=== PATIENT | female | born 1960 | race Caucasian/White ===

== ENCOUNTER 2018-11-19 09:38 | Day surgery (SDC) | payer BC ==
[~2018-11-19 09:38] MED LIST: CLINDAMYCIN 600MG/50ML PREMIX 600 MG/50 ML BAG IVPB ONE; FAMOTIDINE 20MG TABLET PO ONE; MECLIZINE 25 MG TABLET PO ONE; METOCLOPRAMIDE 10 MG TABLET PO ONE; RINGERS SOLUTION,LACTATED 1,000 ML IV ONE
[2018-11-19] MEDS ORDERED: MIDAZOLAM HCL 2MG/2ML VIAL IV ONE (09:39)
[2018-11-19] MEDS ORDERED: ROPIVACAINE HCL (NAROPIN) /PF 5MG/ML 20ML VIAL IV ONE (09:39)
[2018-11-19] MEDS ORDERED: DEXAMETHASONE 4 MG/ML 1ML VIAL IVP ONE (09:39)
[2018-11-19] MEDS ORDERED: PROPOFOL 10 MG/ML VIAL IV ONE (09:39)
[2018-11-19] MEDS ORDERED: LIDOCAINE 2% MDV (20MG/ML) 20ML VIAL IV ONE (09:39)
[2018-11-19] MEDS ORDERED: RINGERS SOLUTION,LACTATED 1,000 ML IV ONE ×2 (10:42→12:25)
[2018-11-19] MEDS ORDERED: ZOLPIDEM TARTRATE 5 MG TABLET PO PRN (15:00)
[2018-11-19] MEDS ORDERED: AL HYDROX/MAG HYDROX 30ML UD PO PRN (15:00)
[2018-11-19] MEDS ORDERED: MAGNESIUM HYDROXIDE 30 ML UDC PO PRN (15:00)
[2018-11-19] MEDS ORDERED: ACETAMINOPHEN 325 MG TAB PO PRN (15:00)
[2018-11-19] MEDS ORDERED: SODIUM CHLORIDE 0.9% IVPB PRN (15:00)
[2018-11-19] MEDS ORDERED: SENNOSIDES/DOCUSATE SODIUM UD CAPSULE PO PRN (15:00)
[2018-11-19] MEDS ORDERED: ONDANSETRON HCL IV 4 MG/2 ML VIAL IVP PRN (15:00)
[2018-11-19] MEDS ORDERED: DIPHENHYDRAMINE HCL 25 MG CAPSULE PO PRN (15:00)
[2018-11-19] MEDS ORDERED: NALOXONE 0.4 MG/1 ML VIAL IVP PRN (15:00)
[2018-11-19] MEDS ORDERED: PROMETHAZINE HCL IVPB PRN (15:00)
[2018-11-19] MEDS ORDERED: TRAMADOL HCL 50 MG TABLET PO PRN (15:00)
[2018-11-19] MEDS ORDERED: OXYCODONE HCL/APAP 5MG/325MG TABLET PO PRN ×2 (15:00)
[2018-11-19] MEDS ORDERED: HYDROCODONE/APAP 5/325MG TABLET PO PRN (15:00)
[2018-11-19] MEDS: HYDROMORPHONE HCL 2 MG/ML VIAL IV PRN ×2 (15:56→20:47)
[2018-11-19] MEDS ORDERED: TRANEXAMIC ACID 1,000 MG in 0.9 % SODIUM CHLORIDE 100ML 100 ML IVPB ONE (16:00)
[2018-11-19] MEDS: HYDROCODONE/APAP 5/325MG TABLET PO PRN (16:14)
[2018-11-19] MEDS ORDERED: RINGERS SOLUTION,LACTATED 1,000 ML IV PRN (17:50)
[2018-11-19] MEDS: TRAMADOL HCL 50 MG TABLET PO PRN (19:43)
[2018-11-19] MEDS: CLINDAMYCIN 600MG/50ML PREMIX 600 MG/50 ML BAG IVPB SCH (20:27)
[2018-11-19] MEDS: ASPIRIN 325 MG TAB ENTERIC-COATED PO SCH (21:35)
[2018-11-19] MEDS: RINGERS SOLUTION,LACTATED 1,000 ML IV SCH (21:36)
[2018-11-19] MEDS ORDERED: PATIENT OWN MED: CITALOPRAM 20 MG PO SCH (22:00)
[2018-11-20] MEDS: HYDROMORPHONE HCL 2 MG/ML VIAL IV PRN ×2 (00:53→03:48)
[2018-11-20] MEDS: CLINDAMYCIN 600MG/50ML PREMIX 600 MG/50 ML BAG IVPB SCH ×2 (03:51→11:50)
[2018-11-20] MEDS: HYDROCODONE/APAP 5/325MG TABLET PO PRN ×2 (06:19→11:49)
--- NOTE | 2018-11-20 08:50 | Operative Note ---
DATE OF SURGERY: 11/19/2018 SURGEON: Elvin Payton DO PREOPERATIVE DIAGNOSIS: Osteoarthritis of the left knee. POSTOPERATIVE DIAGNOSIS: Osteoarthritis of the left knee. OPERATION: Left total knee arthroplasty. DESCRIPTION OF PROCEDURE: This 58-year-old female was taken to the operating room and placed in the supine position on the operating room table. Spinal anesthesia was induced by the department of anesthesia. The left lower extremity was elevated. It was prepped with Hibiclens and draped in the usual sterile fashion. It was exsanguinated and the tourniquet inflated to 300 mmHg. An anterior longitudinal midline incision was made down through the skin and subcutaneous tissue. Parapatellar arthrotomy incision was performed. The distal femoral drill was used to allow the intramedullary alignment gi, and a 9 mm cut was made in the distal femur at 5 degrees of valgus. The cuts were made, and a sizing jig demonstrated a size 4 to be the appropriate size in the anterior- posterior dimension but much too wide in medial-lateral dimension. Therefore, we downsized to a 3 but moved the cutting block 2 mm anteriorly to avoid notching the femur. Subsequently, the 4-in-1 cutting block was pinned in 3 degrees of external rotation. The appropriate cuts were made. Wafers of bone were removed. We then directed our attention to the proximal tibia, and an extramedullary alignment guide was used to cut the proximal tibia referencing a 10 mm cut off the lateral tibial plateau. The tibia was then sized to a size 1, and this was seen to be the appropriate size. It was then punched. Remnants of the menisci and osteophytes were removed from the posterior aspect of the joint. Trial components were inserted, and an 11 mm bearing was seen to be the appropriate size giving us excellent stability throughout range of motion. The patella was then cut and restored to anatomic height with a 29 mm patella. The knee was seen to be stable. We tried to put a 13 bearing in but it was too tight and we were not able to do so but the 11 gave us good stability throughout the range of motion. All trial components were then removed and the wound copiously irrigated with pulse lavage lactated Ringer's solution. All bony surfaces were dried. All components were cemented into place and excess cement removed after the insertion of each component. Once the cement had hardened, the knee was again taken through range of motion with excellent stability being identified. Subsequently, it was again irrigated and suctioned. A drain placed through a separate stab incision. The arthrotomy incision was closed with a #2 Vicryl. The subcutaneous tissue was closed with 0 Vicryl and the skin was stapled. Sterile dressings with a polar pack were applied. She was then transferred to the recovery room in satisfactory condition. GROSS PATHOLOGY: There was severe osteoarthritis in the medial compartment and patellofemoral joint of the left knee. Final components inserted were a [employer] size 3 cruciate retaining femur, a size 1 tibia, an 11 mm deep dish tibial bearing, and a 29 mm patella was used. CC: DO ЕЛЕНА Peck
[2018-11-20] MEDS ORDERED: LOSARTAN PO SCH (10:00)
[2018-11-20] MEDS ORDERED: HCTZ PO SCH (10:00)
[2018-11-20] MEDS ORDERED: METOPROLOL SUCCINATE 50 MG PO SCH (10:00)
[2018-11-20] MEDS: TRAMADOL HCL 50 MG TABLET PO PRN (10:08)
[2018-11-20] MEDS: ASPIRIN 325 MG TAB ENTERIC-COATED PO SCH (10:08)
[2018-11-20] MEDS: RINGERS SOLUTION,LACTATED 1,000 ML IV SCH (10:10)
--- NOTE | 2018-11-20 11:26 | Rehab Evaluation ---
Patient Information - Patient Information Diagnosis: L knee OA Ordered Treatment: PT Evaluate and Treat Status: Initial Evaluation Surgery: Yes (L TKA) Date of Surgery: 11/19/18 Past Medical/Surgical Hx: PAST MEDICAL/SURGICAL HISTORY Surgery to Affected Area? Yes: 5 yrs ago repair of meniscus Recent Surgery? Past Surgical History 5 years ago repaired meniscus due to a tear Right knee torn meniscus repair 4 years ago PMH - Respiratory Hx Respiratory Disorders No PMH - Cardiovascular Hx Cardiovascular Disorders Yes Hx Hypertension Yes Exercise Tolerance Good Hx of Migraines Yes PMH - Neuro Hx Neurological Disorders Yes PMH - GI Hx Gastrointestinal Disorders No PMH - Hx Genitourinary Disorders No Hx Age of Menopause 45 PMH - Endocrine Hx Endocrine Disorders No PMH - Musculoskeletal Hx Musculoskeletal Disorders Yes Hx Arthritis Yes PMH - Psych Hx Psychiatric Problems Yes Hx Depression Yes PMH - Hematology/Oncology Hx Hematology/Oncology No Disorders Premorbid Status: Detail (The patient was independent with all mobility prior to surgery.) Social History: Detail (The criss lives with spouse in a one story house with 2 steps and no handrails. The bathroom is equipped with : tub/shower combination, standard height toilet. No grab bars are present in the bathroom. The patient has front wheeled walker and single point cane.) Precautions: [place], Fall, Other (WBAT on the L LE.) - Time With Patient Total Time Spent With Patient (Min): 30 Treatment Procedures: Detail (Initial Evaluation Low complexity.) Subjective Information - Subjective Information Per Patient (The patient has complaints of L knee pain level 2 at the highest using 0-10 pain scale.) Objective Data - Mental Status Patient Orientation: Oriented x3 - Visual Perception Appears within normal limits for therapeutic activities - ROM Not within normal limits (The patient's L knee AROM is limited as to be expected s/p surgery. All other LE AROM is WNL.) - Strength/Tone Not within normal limits (The patient's L LE strength was not tested s/p surgery however was functional except for quad weakness ( patient needed use of strap lifting L LE in and out of bed and had difficulty isolated her quad during a quad set.) The patient's R LE strength was functional.) - Bed Mobility Independent (The patient was independent with supine to and from sit with use of strap or R LE to lift LE. The patient was able to scoot up in bed without use of trapeze independently.) - Transfers Independent (Independent with supine to and from sit transfer.) - Balance Balance Sitting: Good Balance Standing: Good - Sensation Intact - Gait Detail (The patient ambulated with front wheeled walker a distance of 75 feet x 1 WBAT on the L LE independently. The patient ambulated on 3 steps with use one railing, ambulating sideways with supervision for safety.) Therapy Assessment - Therapy Assessment Detail (The patient has met all inpatient PT goals and is discharged from inpatient PT. The patient is to continue with outpatient PT.) Problem List - Problem List Physical Therapy Problem List: Detail (1) Decreased L knee AROM as to be expected following surgery. 2) Decreased L LE strength as to be expected following surgery.) Goals - Goals Physical Therapy Goals: The patient has met all inpatient PT goals and is discharged from inpatient PT. Prognosis - Prognosis Good Plan - Plan Physical Therapy Plan: The patient is discharged from inpatient PT and is to continue with outpatient PT.
--- NOTE | 2018-11-20 12:31 | Discharge Summary ---
DATE OF ADMISSION: 11/19/2018 DATE OF DISCHARGE: 11/20/2018 ADMITTING DIAGNOSIS: Osteoarthritis of left knee. DISCHARGE DIAGNOSIS: Osteoarthritis of left knee. OPERATIVE PROCEDURE: Elective left total knee arthroplasty. HOSPITAL COURSE: This 58-year-old female was admitted to the hospital for elective total knee arthroplasty and tolerated the operative procedure well and progressed satisfactorily with physical therapy and cleared physical therapy and was ready for discharge. She did not show any evidence of complication to her surgery with no evidence of DVT. The pain was controlled with oral pain medication. She will be discharged today and her discharge instructions were to take aspirin 325 mg daily for 2 weeks. She will take [place] 5/325. She was given a prescription for 40 to take 1 every 6 hours as necessary for pain. She was also given a prescription for Ultram 50 mg, #60, 1-2 every 6 hours as necessary for pain to alternate with the [place]. She was set up for outpatient physical therapy. Routine wound care instructions were given. She will follow up in the clinic in 2 weeks. Should she have any problems prior to being seen, she was instructed to call my office. ЕЛЕНА
--- NOTE | 2018-11-20 12:32 | Rehab Evaluation ---
Patient Information - Patient Information Diagnosis: L knee OA Ordered Treatment: OT Evaluate and Treat Status: Initial Evaluation Surgery: Yes (L TKA) Date of Surgery: 11/19/18 Past Medical/Surgical Hx: PAST MEDICAL/SURGICAL HISTORY Surgery to Affected Area? Yes: 5 yrs ago repair of meniscus Recent Surgery? Past Surgical History 5 years ago repaired meniscus due to a tear Right knee torn meniscus repair 4 years ago PMH - Respiratory Hx Respiratory Disorders No PMH - Cardiovascular Hx Cardiovascular Disorders Yes Hx Hypertension Yes Exercise Tolerance Good Hx of Migraines Yes PMH - Neuro Hx Neurological Disorders Yes PMH - GI Hx Gastrointestinal Disorders No PMH - Hx Genitourinary Disorders No Hx Age of Menopause 45 PMH - Endocrine Hx Endocrine Disorders No PMH - Musculoskeletal Hx Musculoskeletal Disorders Yes Hx Arthritis Yes PMH - Psych Hx Psychiatric Problems Yes Hx Depression Yes PMH - Hematology/Oncology Hx Hematology/Oncology No Disorders Premorbid Status: Detail (The patient was independent with all ADLs and functional mobility prior to surgery.) Social History: Detail (The paient lives with spouse in a one story house with 2 steps and no handrails. The bathroom is equipped with a tub/shower combination, a grab bar in the toilet, and a standard height toilet. he patient has front wheeled walker and single point cane.) Precautions: [place], Fall, Other (WBAT on the L LE.) - Time With Patient Total Time Spent With Patient (Min): 22 (1 eval, 1 ADL) Treatment Procedures: Detail (OT eval: low complexity) Subjective Information - Subjective Information Per Patient (Ok to see per SELIN Mendoza. Pt agreeable to OT eval and Tx.) Objective Data - Pain Pain Present: Yes (08/04 - SELIN Patterson giving pain meds at bedside) - Mental Status Patient Orientation: Oriented x3 - Visual Perception Appears within normal limits for therapeutic activities - ROM Within normal limits (B UEs) - Strength/Tone Within normal limits (B UEs) - Coordination Appears within normal limits for therapeutic activities - Bed Mobility Needs Assist (light assist to elevate L LE into bed - Pt reports spouse will assist as needed at DC) - Transfers Independent (Sit to stand from low EOB to FWW with MOD I and good safety awareness.) - Balance Balance Sitting: Good Balance Standing: Fair (Fair + with FWW during standing pant mgmt) - Sensation Intact - Gait Detail (Functional mobility within bedroom with FWW and good safety awareness.) - ADL's/IADL's Detail (OT educates Pt on LB dressing using modified technique, sock aide, and government contracts manager. Pt's ability to reach to feet for socks and threading pants limited by pain, but demos MOD I post education with LB dressing using AE - reports she has a government contracts manager at home, spouse will assist with socks, and demos ability to use sock aide if she wants one later. OT educates Pt on safety with car and tub/shower TFs and recommends use of shower chair initially for balance safety s/p TKA.) Therapy Assessment - Therapy Assessment Detail (Pt demos good safety and MOD I with ADLs and functional mobility along with verbalizing safety with home tasks. Pt will have retired spouse at home who is able to assist as needed.) Patient Education - Patient Education Teaching Topic: Equipment Use Response: Return Demonstration, Verbalize Understanding Teaching Method: Discussion, Demonstration Teaching Recipient: Patient Barriers To Learning: None Problem List - Problem List Physical Therapy Problem List: Detail (1) Decreased L knee AROM as to be expected following surgery. 2) Decreased L LE strength as to be expected following surgery.) Occupational Therapy Problem List: Detail (No further IP OT needs identified.) Goals - Goals Physical Therapy Goals: The patient has met all inpatient PT goals and is discharged from inpatient PT. Occupational Therapy Goals: No further IP OT needs/goal identified. Prognosis - Prognosis Good Plan - Plan Physical Therapy Plan: The patient is discharged from inpatient PT and is to continue with outpatient PT. Occupational Therapy Plan: No further IP OT needs identified. Pt appears safe for home DC with spouse assist as needed. DC IP OT services. Thank you for this referral.
== END 2018-11-20 14:20 | disposition home or self-care (01) ==
LOC: SUR 09:38 → MEDSURG 14:09 → SUR 11-20 14:20
PROVIDERS: ATTEND Orthopaedic Surgery
DX: M17.12 Unilateral primary osteoarthritis, left knee (principal); I10 Essential (primary) hypertension; Z68.41 Body mass index [BMI] 40.0-44.9, adult
CPT/HCPCS: 27447; 01402; 64447; J1170 ×2; J3490; J2795; 76942; C1776; J7120